=== PATIENT | female | born 1945 | race Caucasian/White ===

== ENCOUNTER 2023-04-03 12:42 | Emergency (ER) | payer MEDICARE, OTHER, SELFPAY ==
--- NOTE | ~2023-04-03 | CT_ITS ---
EXAMINATION: CT abdomen pelvis wo con DATE: 04/03/2023 13:29 INDICATION: Left flank pain TECHNIQUE: Computed tomography (CT) of the abdomen and pelvis was performed without intravenous contr ast. The dose-length product was 217.99 mGy-cm. Automated exposure control and iterative reconstructi on technique were employed. COMPARISON: None. FINDINGS: Lung bases are unremarkable. Heart size normal. No significant pleural or pericardial effus ion. There are calcified granulomas of the spleen. There are multiple hypodense lesions of the liver, the largest of which are compatible with cysts. The spleen contains calcified granulomas. The pancre as, adrenal glands and left kidney are unremarkable. Bladder is unremarkable. There is a 3 mm nonobst ructing right renal stone. Status post cholecystectomy. Colonic diverticulosis without evidence for d iverticulitis. Status post cholecystectomy. Moderate lumbar spondylosis. No free air or free fluid. T here is atherosclerosis. No lymphadenopathy. No free air or free fluid. There are surgical changes at the cecum. IMPRESSION: 1. No acute abdominal abnormality. 2: Nonobstructing right nephrolithiasis. Reviewed, dictated and finalized at location A. [facility]
[2023-04-03 12:48] VITALS: BP 132/74; PULSE 92; RESP 18; TEMP 37.1; O2SAT 97
[2023-04-03 13:22] LABS: Hematocrit 34.2 % (35.0-42.0); Hemoglobin 11.4 g/dL (11.7-13.8); Mean Corpuscular HGB Conc 33.3 g/dL (32.0-36.0); Mean Corpuscular Hemoglobin 29.3 pg (27.0-31.0); Mean Corpuscular Volume 87.9 fL (78.0-102.0); Mean Platelet Volume 9.9 fl (9.2-11.8); Platelet Count Result 200 K/mm3 (150-420); Red Blood Count 3.89 M/mm3 (4.20-5.40); Red Cell Distribution Width 13.2 % (11.6-14.4); White Blood Count 10.6 K/mm3 (4.8-10.8)
[2023-04-03 13:31] LABS: Band Neutrophils Percent 0 % (0-6); Basophils Percent Manual 0 % (0-1); Eosinophils Percent Manual 0 % (1-6); Lymphocytes Percent Manual 18 % (18-44); Monocytes Absolute Manual 1.16 K/mm3 (0.1-0.90); Monocytes Percent Manual 11 % (3-9); Neutrophils Absolute Manual 7.52 K/mm3 (1.7-7.2); Neutrophils Percent Manual 71 % (46-73); Platelet Estimate Adequate (Adequate); Total Cells Counted 100
[2023-04-03 13:36] LABS: Alanine Aminotransferase 28 U/L (14-59); Albumin Level 3.5 g/dL (3.4-5.0); Alkaline Phosphatase 80 U/L (46-116); Anion Gap 5 mmol/L (8-16); Aspartate Amino Transferase 19 U/L (15-37); Bilirubin,Total 0.8 mg/dL (0.00-1.00); Blood Urea Nitrogen 21 mg/dL (7-18); Calcium 9.3 mg/dL (8.5-10.1); Chloride 96 mmol/L (98-108); Estimated CRCL calculation 45 ml/min; Estimated Glomerular Filt Rate 55; Glucose 109 mg/dL (70-99); Osmolality Calculated 280 mOsm/kg (285-295); Potassium 3.3 mmol/L (3.5-5.1); Sodium 133 mmol/L (136-145); Total Protein 6.9 g/dL (6.4-8.2)
[2023-04-03 13:47] LABS: Carbon Dioxide 30 mmol/L (21-32)
[2023-04-03] MEDS: KETOROLAC 30 MG/ML VIAL (*BKC) IM (13:49)
[2023-04-03] MEDS: POTASSIUM BICARBONATE 25 MEQ TABEF 50 MEQ PO (13:58)
[2023-04-03 13:59] LABS: Appearance Urine Clear (Clear); Bilirubin Urine Negative (Negative); Blood Urine 3+ (Negative); Glucose Urine UA Negative (Negative); Ketones Urine Trace (Negative); Leukocyte Esterase Ur 2+ LEU/UL (Negative); Nitrate Urine Negative (Negative); Protein Urine Negative (Negative); Specific Grav Ur 1.015 (1.010-1.020); Urobilinogen Urine 0.2 mg/dL (0.2-1.0)
[2023-04-03 14:06] LABS: Add Urine Microscopic? YES; Bacteria Urine Trace /hpf; Color Urine Yellow (Yellow); Squamous Epithelial Cell Urine Rare /hpf (Few)
[2023-04-03] MEDS: SODIUM CHLORIDE 0.9% IV 500 ML 999 ML IV CONT (14:07)
--- NOTE | 2023-04-03 15:02 | ED.FEMALEGU ---
HPI - Female Genitourinary General Chief complaint: Urogenital-Female Stated complaint: kidney stone Time Seen by Provider: 04/03/23 12:44 Source: patient Mode of arrival: ambulatory Limitations: no limitations History of Present Illness HPI Narrative: this is a 68-year-old female that presents with left flank discomfort with suprapubic pain and dysuria with no hematuria no fever chills no nausea vomiting no chest pain or shortness of breath. MD elicited complaint: dysuria and flank pain Onset (ago): day(s) Severity: moderate Female Urogenital Radiation: Suprapubic Severity scale (1-10): 4 Quality of pain: dull Consistency: constant Vaginal discharge: none Vaginal bleeding: none Urinary symptoms: Dysuria Related Data Home Medications Medication Instructions Recorded Confirmed atorvastatin 20 mg tablet 20 mg PO DAILY 04/03/23 04/03/23 lisinopril 20 1 tablet PO DAILY 04/03/23 04/03/23 mg-hydrochlorothiazide 25 mg tablet Allergies Allergy/AdvReac Type Severity Reaction Status Date / Time No Known Allergies Allergy Verified 04/03/23 13:19 Review of Systems Review of Systems: All systems reviewed & are unremarkable except as noted in HPI and below PMFSH Past Medical History Medical History HLD (hyperlipidemia) HTN (hypertension) Exam Const: General: healthy appearing and no acute distress Nutritional Appearance: well nourished Orientation/consciousness: patient oriented x3 Limitations: no limitations Chest: Chest palpation & inspection: normal inspection of the chest Resp: Effort & Inspection: normal respiratory effort Auscultation: clear to auscultation bilaterally Cardio: Rate: regular rate Rhythm: regular rhythm GI: GI Palp: Yes Soft to palpation Auscultation: normal bowel sounds : General: Yes Bladder palpation abnormal and Yes CVA tenderness Urinary Catheter: Urinary Catheter: patent and draining Back/Spine/Pelvis: Back: CVA tenderness Skin: General skin exam: normal color Course Course Emergency Course: patient had blood work which was with no acute abnormalities had a CT scan of the abdomen and pelvis contrast which showed swab obstructing kidney stone, is on the left with suprapubic tenderness urinalysis showed abnormal and will treat for urinary tract infection with a dose of IV ceftriaxone. Vital Signs Vital signs: Vital Signs Temperature 37.1 C 04/03/23 12:48 Pulse Rate 92 04/03/23 12:48 Respiratory Rate 18 04/03/23 12:48 Blood Pressure 132/74 04/03/23 12:48 Pulse Oximetry 97 04/03/23 12:48 Oxygen Delivery Room Air 04/03/23 12:48 Temperature 37.1 C 04/03/23 12:48 Pulse Rate 92 04/03/23 12:48 Respiratory Rate 18 04/03/23 12:48 Blood Pressure 132/74 04/03/23 12:48 Pulse Oximetry 97 04/03/23 12:48 Oxygen Delivery Room Air 04/03/23 12:48 MDM - Female Genitourinary Lab Data 04/03/23 13:17 04/03/23 13:18 Labs: Lab Results 04/03/23 04/03/23 04/03/23 Range/Units 13:17 13:18 13:55 WBC 10.6 (4.8-10.8) K/mm3 RBC 3.89 L (4.20-5.40) M/mm3 Hgb 11.4 L (11.7-13.8) g/dL Hct 34.2 L (35.0-42.0) % MCV 87.9 (78.0-102.0) fL MCH 29.3 (27.0-31.0) pg MCHC 33.3 (32.0-36.0) g/dL RDW 13.2 (11.6-14.4) % Plt Count 200 (150-420) K/mm3 MPV 9.9 (9.2-11.8) fl Immature Gran % (Auto) Not Reportable Neut % (Auto) Not Reportable Lymph % (Auto) Not Reportable Casey % (Auto) Not Reportable Eos % (Auto) Not Reportable Baso % (Auto) Not Reportable Lymph # (Auto) Not Reportable Casey # (Auto) Not Reportable Eos # (Auto) Not Reportable Baso # (Auto) Not Reportable Abs Immat Gran (auto) Not Reportable Absolute Neuts (auto) Not Reportable Absolute Nucleated RBC Not Reportable Total Counted 100 Neutrophils % (Manual) 71 (46-73) % Band Neut
[2023-04-03 15:26] VITALS: BP 101/78; PULSE 78; RESP 20; TEMP 36.9; O2SAT 96
--- NOTE | 2023-04-06 13:57 | PC.NURSE ---
FINAL URINE CULTURE RESULTS: GREATER THAN 100,000 CFU/ML OF ESCHERICIHIA COLI. PER DR QUINN, PT HAS BEEN INSTRUCTED TO STOP TAKING MACROBID, A RX FOR CIPRO 500MG PO BID X 7 DAYS WAS CALLED INTO [facility] PT REQUESTED. PT IS AWARE OF PLAN OF CARE.
== END 2023-04-03 15:28 | disposition home or self-care (01) ==
PROVIDERS: Emergency Provider Emergency Medicine
DX: N30.00 Acute cystitis without hematuria (principal); E78.5 Hyperlipidemia, unspecified; I10 Essential (primary) hypertension; Z79.899 Other long term (current) drug therapy
CPT/HCPCS: 36415; 74176; 80053; 81001; 85025; 87077; 87086; 87088; 87186; 96361; 96365; 96372; 99284; A9270; J0696; J1885; J7040